=== PATIENT | male | born 1945 | race Caucasian/White ===

== ENCOUNTER 2016-06-27 23:45 | Emergency (ER) | payer OTHER ==
[~2016-06-27] VITALS: Ht 172.7 cm; Wt 61.2 kg
[2016-06-29] MEDS ORDERED: DUONEB 2.5-0.5 M3 ML (04:57)
[2016-06-29] MEDS ORDERED: LEXAPRO 10 MG T10 M1 (05:02)
[2016-06-29] MEDS ORDERED: MELATONIN3 MG PER TUBE (05:08)
[2016-06-29] MEDS ORDERED: SENOKOT-S1 TA1 (05:10)
[2016-06-29] MEDS ORDERED: VITAMINC500 (05:12)
== END 2016-06-28 01:38 ==
LOC: ER 23:45
DX: K94.20 Gastrostomy complication, unspecified (principal); K21.9 Gastro-esophageal reflux disease without esophagitis; J44.9 Chronic obstructive pulmonary disease, unspecified

== ENCOUNTER 2016-06-28 16:24 | Observation (INO) | payer OTHER ==
[~2016-06-28] VITALS: Ht 177.8 cm; Wt 59.6 kg
[2016-06-28 16:24] VITALS: BP 106/62
[2016-06-28 18:02] LABS: ABSOLUTE NEUTROPHILS 4.9 thou/uL (1.4-8.2); BASOPHILS 0.8 % (0.0-2.0); EOSINOPHILS 2.4 % (0.0-3.0); HEMATOCRIT 38.5 % (42.0-52.0); LYMPHOCYTES 25.8 % (24.0-44.0); MCH 30.1 pg (26.0-34.0); MCHC 33.7 % (28.0-37.0); MCV 89.2 fL (80.0-100.0); MONOCYTES 8.7 % (1.0-8.0); PLATELET COUNT 306 thou/uL (150-400); POLYS 62.3 % (36.0-66.0); RBC 4.32 mil/uL (4.50-6.00); RDW 13.6 % (10.5-14.5); WBC 7.9 thou/uL (4.0-11.0)
[2016-06-28 18:11] LABS: MANUAL DIFF NO
[2016-06-28 18:13] LABS: CALCIUM 9.4 mg/dL (8.5-10.1); CREATININE 0.8 mg/dL (0.6-1.3); POTASSIUM 4.4 mmol/L (3.5-5.1)
[2016-06-28 18:19] LABS: ALBUMIN 3.1 g/dL (3.4-5.0); TOTAL BILIRUBIN 0.6 mg/dL (<0.1-1.0); TOTAL PROTEIN 7.4 g/dL (6.4-8.2)
[2016-06-28 20:16] VITALS: BP 84/50
[2016-06-28 20:30] VITALS: BP 93/53
[2016-06-29 00:50] VITALS: BP 93/55
[2016-06-29 04:35] VITALS: BP 95/55
[2016-06-29] MEDS ORDERED: DUONEB 2.5-0.5 M3 ML (04:57)
[2016-06-29] MEDS ORDERED: LEXAPRO 10 MG T10 M1 (05:02)
[2016-06-29] MEDS ORDERED: MELATONIN3 MG PER TUBE (05:08)
[2016-06-29] MEDS ORDERED: SENOKOT-S1 TA1 (05:10)
[2016-06-29] MEDS ORDERED: VITAMINC500 (05:12)
[2016-06-29 08:23] VITALS: BP 88/50
[2016-06-29 13:01] LABS: HEMATOCRIT 35.8 % (42.0-52.0); MCH 29.8 pg (26.0-34.0); MCHC 33.4 % (28.0-37.0); MCV 89.4 fL (80.0-100.0); RBC 4.01 mil/uL (4.50-6.00); RDW 13.7 % (10.5-14.5); WBC 7.3 thou/uL (4.0-11.0)
[2016-06-29 13:14] LABS: CALCIUM 8.9 mg/dL (8.5-10.1); CREATININE 0.7 mg/dL (0.6-1.3); POTASSIUM 4.9 mmol/L (3.5-5.1)
[2016-06-29 13:20] LABS: INR 2.4; PROTIME 24.4 Seconds (9.3-11.4)
== END 2016-06-29 17:04 ==
LOC: ER 16:24 → 4N 19:40 → EROBS 19:40 → 4N 20:17
PROVIDERS: Emergency Medicine; Nurse Practitioner Adult Health
DX: K94.23 Gastrostomy malfunction (principal); K94.13 Enterostomy malfunction; F80.82 Social pragmatic communication disorder; R47.1 Dysarthria and anarthria; R13.10 Dysphagia, unspecified; K21.9 Gastro-esophageal reflux disease without esophagitis; J44.9 Chronic obstructive pulmonary disease, unspecified; D64.89 Other specified anemias; I82.409 Acute embolism and thrombosis of unspecified deep veins of unspecified lower extremity; E86.0 Dehydration; Z87.891 Personal history of nicotine dependence; Z79.899 Other long term (current) drug therapy; E16.2 Hypoglycemia, unspecified

== ENCOUNTER 2016-07-10 19:03 | Observation (INO) | payer OTHER ==
[~2016-07-10] VITALS: Ht 172.7 cm; Wt 61.2 kg
[~2016-07-10 19:03] MED LIST: DUONEB 2.5-0.5 M3 ML; LEXAPRO 10 MG T10 M1; MELATONIN3 MG PER TUBE; SENOKOT-S1 TA1; VITAMINC500
[2016-07-10 19:04] VITALS: BP 99/61
[2016-07-10 19:24] LABS: HEMATOCRIT 38.3 % (42.0-52.0); HEMOGLOBIN 12.6 gm/dL (14.0-18.0); MCH 29.4 pg (26.0-34.0); RBC 4.3 mil/uL (4.50-6.00); RDW 13.6 % (10.5-14.5); WBC 8.8 thou/uL (4.0-11.0)
[2016-07-10 19:30] LABS: CALCIUM 9.1 mg/dL (8.5-10.1); CREATININE 0.7 mg/dL (0.6-1.3); POTASSIUM 4.5 mmol/L (3.5-5.1)
[2016-07-10 19:37] LABS: ALBUMIN 3.1 g/dL (3.4-5.0); TOTAL BILIRUBIN 0.3 mg/dL (<0.1-1.0); TOTAL PROTEIN 7.5 g/dL (6.4-8.2)
[2016-07-10 19:41] LABS: APTT 34.1 Seconds (24.5-32.8); INR 2.5; PROTIME 26.3 Seconds (9.3-11.4)
[2016-07-10 20:25] VITALS: BP 97/60
[2016-07-11] VITALS (11 sets, daily range): BP systolic 85–130; BP diastolic 50–79
[2016-07-12 07:21] VITALS: BP 110/78
[2016-07-12 15:16] VITALS: BP 104/68
== END 2016-07-12 19:05 ==
LOC: ER 19:03 → 5S 20:02 → EROBS 20:02 → 5S 23:28
PROVIDERS: Emergency Medicine
DX: K94.10 Enterostomy complication, unspecified (principal); Z79.899 Other long term (current) drug therapy; K21.9 Gastro-esophageal reflux disease without esophagitis; J44.9 Chronic obstructive pulmonary disease, unspecified; R47.1 Dysarthria and anarthria; D64.9 Anemia, unspecified; Z87.891 Personal history of nicotine dependence; E46 Unspecified protein-calorie malnutrition

== ENCOUNTER 2016-07-18 10:10 | Emergency (ER) | payer OTHER ==
[~2016-07-18] VITALS: Ht 167.6 cm; Wt 56.7 kg
== END 2016-07-18 14:45 | disposition home or self-care (01) ==
LOC: ER 10:10
DX: K94.23 Gastrostomy malfunction (principal); K21.9 Gastro-esophageal reflux disease without esophagitis; Z86.718 Personal history of other venous thrombosis and embolism; J44.9 Chronic obstructive pulmonary disease, unspecified; Z86.2 Personal history of diseases of the blood and blood-forming organs and certain disorders involving the immune mechanism; I48.91 Unspecified atrial fibrillation; R47.1 Dysarthria and anarthria

== ENCOUNTER 2016-09-12 19:34 | Inpatient (IN) | payer OTHER ==
[~2016-09-12] VITALS: Ht 167.6 cm; Wt 56.0 kg
[2016-09-12 19:36] VITALS: BP 109/54
[2016-09-12 20:44] LABS: ABSOLUTE NEUTROPHILS 3.7 thou/uL (1.4-8.2); BASOPHILS 0.9 % (0.0-2.0); EOSINOPHILS 3.8 % (0.0-3.0); HEMATOCRIT 40.9 % (42.0-52.0); HEMOGLOBIN 13.7 gm/dL (14.0-18.0); LYMPHOCYTES 33.1 % (24.0-44.0); MCH 29.7 pg (26.0-34.0); MCHC 33.4 g/dL (28.0-37.0); MCV 88.8 fL (80.0-100.0); MONOCYTES 8.2 % (1.0-8.0); PLATELET COUNT 192 thou/uL (150-400); RDW 14.4 % (10.5-14.5); WBC 6.8 thou/uL (4.0-11.0)
[2016-09-12 20:46] LABS: MANUAL DIFF NO
[2016-09-12 20:52] LABS: CALCIUM 9.6 mg/dL (8.5-10.1); CREATININE 0.8 mg/dL (0.6-1.3)
[2016-09-12 20:56] LABS: ALBUMIN 3.6 g/dL (3.4-5.0); TOTAL BILIRUBIN 0.6 mg/dL (<0.1-1.0); TOTAL PROTEIN 7.3 g/dL (6.4-8.2)
[2016-09-12] MEDS ORDERED: COUMADIN 4 MG TA4 M1 PO (21:24)
[2016-09-12 21:27] VITALS: BP 98/55
[2016-09-13] VITALS (7 sets, daily range): BP systolic 86–96; BP diastolic 47–52
[2016-09-13 05:48] LABS: INR 1.8; PROTIME 18.7 Seconds (9.3-11.4)
[2016-09-13 06:10] LABS: ALBUMIN 3.4 g/dL (3.4-5.0); CALCIUM 9.2 mg/dL (8.5-10.1); CREATININE 0.8 mg/dL (0.6-1.3); MAGNESIUM 2.1 mg/dL (1.8-2.4); POTASSIUM 4.1 mmol/L (3.5-5.1); TOTAL BILIRUBIN 0.7 mg/dL (<0.1-1.0); TOTAL PROTEIN 6.9 g/dL (6.4-8.2)
[2016-09-14 00:43] VITALS: BP 107/60
[2016-09-14 04:51] VITALS: BP 104/57
[2016-09-14 07:05] LABS: INR 1.7
[2016-09-14 08:20] VITALS: BP 94/50
[2016-09-14 12:40] VITALS: BP 109/61
[2016-09-14 15:26] VITALS: BP 104/51
== END 2016-09-14 16:41 | DRG 394 ==
LOC: ER 19:34 → 4S 20:52 → EROBS 20:52 → 4S 21:29
PROVIDERS: Internal Medicine Endocrinology, Diabetes & Metabolism; Nurse Practitioner; Physician Assistant
PROC: 0D20XUZ Change Feeding Device in Upper Intestinal Tract, External Approach (ICD-10-PCS; principal; 2016-09-13)
DX: K94.23 Gastrostomy malfunction (principal); H44.003 Unspecified purulent endophthalmitis, bilateral; K21.9 Gastro-esophageal reflux disease without esophagitis; J44.9 Chronic obstructive pulmonary disease, unspecified; D63.8 Anemia in other chronic diseases classified elsewhere; I48.91 Unspecified atrial fibrillation; R47.1 Dysarthria and anarthria; R13.10 Dysphagia, unspecified; K94.13 Enterostomy malfunction; Z79.899 Other long term (current) drug therapy; Z86.718 Personal history of other venous thrombosis and embolism; Z79.01 Long term (current) use of anticoagulants
CPT/HCPCS: 10195

== ENCOUNTER 2016-12-15 06:41 | Emergency (ER) | payer OTHER ==
[~2016-12-15] VITALS: Ht 175.3 cm; Wt 54.4 kg
[~2016-12-15 06:41] MED LIST changes: +COUMADIN 4 MG TA4 M1 PO
[2016-12-15 11:43] VITALS: BP 99/74
== END 2016-12-15 12:45 | disposition home or self-care (01) ==
LOC: ER 06:41
DX: K94.13 Enterostomy malfunction (principal); K21.9 Gastro-esophageal reflux disease without esophagitis; J44.9 Chronic obstructive pulmonary disease, unspecified; I48.91 Unspecified atrial fibrillation; R47.1 Dysarthria and anarthria; Z86.2 Personal history of diseases of the blood and blood-forming organs and certain disorders involving the immune mechanism; Z86.718 Personal history of other venous thrombosis and embolism

== ENCOUNTER 2016-12-20 21:44 | Emergency (ER) | payer OTHER ==
[~2016-12-20] VITALS: Ht 175.3 cm; Wt 54.4 kg
== END 2016-12-20 23:34 | disposition home or self-care (01) ==
LOC: ER 21:44
DX: T85.848A Pain due to other internal prosthetic devices, implants and grafts, initial encounter (principal); K21.9 Gastro-esophageal reflux disease without esophagitis; J44.9 Chronic obstructive pulmonary disease, unspecified; I48.91 Unspecified atrial fibrillation; F10.99 Alcohol use, unspecified with unspecified alcohol-induced disorder; Z86.718 Personal history of other venous thrombosis and embolism; Y84.8 Other medical procedures as the cause of abnormal reaction of the patient, or of later complication, without mention of misadventure at the time of the procedure; Y92.89 Other specified places as the place of occurrence of the external cause

== ENCOUNTER 2017-01-05 20:51 | Emergency (ER) | payer OTHER ==
[~2017-01-05] VITALS: Ht 175.3 cm; Wt 59.0 kg
== END 2017-01-06 00:20 | disposition home or self-care (01) ==
LOC: ER 20:51
DX: K94.13 Enterostomy malfunction (principal); K21.9 Gastro-esophageal reflux disease without esophagitis; J44.9 Chronic obstructive pulmonary disease, unspecified; I48.91 Unspecified atrial fibrillation; Z98.890 Other specified postprocedural states; Z86.718 Personal history of other venous thrombosis and embolism; F10.99 Alcohol use, unspecified with unspecified alcohol-induced disorder

== ENCOUNTER 2017-02-21 02:28 | Emergency (ER) | payer OTHER ==
[~2017-02-21] VITALS: Ht 167.6 cm; Wt 70.3 kg
[2017-02-21 06:28] VITALS: BP 101/60
[2017-02-21 07:01] LABS: HEMATOCRIT 39.2 % (42.0-52.0); HEMOGLOBIN 13.4 gm/dL (14.0-18.0); MCH 30.3 pg (26.0-34.0); MCHC 34.1 g/dL (28.0-37.0); MCV 88.8 fL (80.0-100.0); RBC 4.41 mil/uL (4.50-6.00); RDW 12.8 % (10.5-14.5); WBC 7.1 thou/uL (4.0-11.0)
[2017-02-21 07:16] LABS: CALCIUM 9.5 mg/dL (8.5-10.1); CREATININE 0.8 mg/dL (0.7-1.3); POTASSIUM 4.3 mmol/L (3.5-5.1)
== END 2017-02-21 11:14 | disposition home or self-care (01) ==
LOC: ER 02:28
PROVIDERS: Emergency Medicine
DX: K94.23 Gastrostomy malfunction (principal); K21.9 Gastro-esophageal reflux disease without esophagitis; Z86.718 Personal history of other venous thrombosis and embolism; J44.9 Chronic obstructive pulmonary disease, unspecified; I48.91 Unspecified atrial fibrillation; F10.99 Alcohol use, unspecified with unspecified alcohol-induced disorder; Y84.8 Other medical procedures as the cause of abnormal reaction of the patient, or of later complication, without mention of misadventure at the time of the procedure

== ENCOUNTER 2017-02-22 06:01 | Observation (INO) | payer OTHER ==
[~2017-02-22] VITALS: Ht 167.6 cm; Wt 70.3 kg
[2017-02-22 06:02] VITALS: BP 95/54
[2017-02-22 07:18] VITALS: BP 95/54
[2017-02-22 08:25] VITALS: BP 98/51
[2017-02-22 08:34] LABS: ABSOLUTE NEUTROPHILS 4.9 thou/uL (1.4-8.2); BASOPHILS 0.9 % (0.0-2.0); EOSINOPHILS 3.9 % (0.0-3.0); HEMATOCRIT 39.7 % (42.0-52.0); HEMOGLOBIN 13.4 gm/dL (14.0-18.0); LYMPHOCYTES 21.5 % (24.0-44.0); MCH 30.1 pg (26.0-34.0); MCHC 33.8 g/dL (28.0-37.0); MCV 89.1 fL (80.0-100.0); MONOCYTES 7.5 % (1.0-8.0); PLATELET COUNT 321 thou/uL (150-400); POLYS 66.2 % (36.0-66.0); RBC 4.45 mil/uL (4.50-6.00); WBC 7.5 thou/uL (4.0-11.0)
[2017-02-22 08:36] LABS: MANUAL DIFF NO
[2017-02-22 08:44] LABS: INR 1.5; PROTIME 15.4 Seconds (9.3-11.4)
[2017-02-22 08:47] LABS: ALBUMIN 3.2 g/dL (3.4-5.0); CALCIUM 9.4 mg/dL (8.5-10.1); CREATININE 0.6 mg/dL (0.7-1.3); MAGNESIUM 2.1 mg/dL (1.8-2.4); POTASSIUM 4.7 mmol/L (3.5-5.1); TOTAL BILIRUBIN 0.3 mg/dL (<0.1-1.0); TOTAL PROTEIN 7.4 g/dL (6.4-8.2)
[2017-02-22 09:01] VITALS: BP 100/63
[2017-02-22 16:02] VITALS: BP 105/63
[2017-02-22 21:04] VITALS: BP 102/56
[2017-02-23] VITALS (8 sets, daily range): BP systolic 98–111; BP diastolic 52–68
[2017-02-23 05:14] LABS: ABSOLUTE NEUTROPHILS 4.3 thou/uL (1.4-8.2); BASOPHILS 0.9 % (0.0-2.0); EOSINOPHILS 1.9 % (0.0-3.0); HEMATOCRIT 37.1 % (42.0-52.0); LYMPHOCYTES 24.1 % (24.0-44.0); MCH 31.2 pg (26.0-34.0); MCHC 34.9 g/dL (28.0-37.0); MCV 89.5 fL (80.0-100.0); PLATELET COUNT 323 thou/uL (150-400); POLYS 65.1 % (36.0-66.0); RBC 4.15 mil/uL (4.50-6.00); RDW 13.1 % (10.5-14.5); WBC 6.6 thou/uL (4.0-11.0)
[2017-02-23 05:22] LABS: MANUAL DIFF NO
[2017-02-23 05:27] LABS: CREATININE 0.7 mg/dL (0.7-1.3); MAGNESIUM 1.9 mg/dL (1.8-2.4)
[2017-02-23 05:36] LABS: POTASSIUM 3.4 mmol/L (3.5-5.1)
[2017-02-24 04:38] VITALS: BP 103/61
[2017-02-24 06:24] LABS: CALCIUM 8.9 mg/dL (8.5-10.1); CREATININE 0.7 mg/dL (0.7-1.3); INR 1.3; POTASSIUM 3.2 mmol/L (3.5-5.1); PROTIME 13.4 Seconds (9.3-11.4)
[2017-02-24 07:47] VITALS: BP 99/51
[2017-02-24] MEDS ORDERED: MIRALAX17 GM PER TUBE (09:31)
== END 2017-02-24 13:50 ==
LOC: ER 06:01 → EROBS 07:01 → 4E 07:01
PROVIDERS: Internal Medicine; Nurse Practitioner
DX: T85.528A Displacement of other gastrointestinal prosthetic devices, implants and grafts, initial encounter (principal); Z98.890 Other specified postprocedural states; K21.9 Gastro-esophageal reflux disease without esophagitis; Z86.718 Personal history of other venous thrombosis and embolism; J44.9 Chronic obstructive pulmonary disease, unspecified; Z87.891 Personal history of nicotine dependence; R13.10 Dysphagia, unspecified; I48.91 Unspecified atrial fibrillation; D64.9 Anemia, unspecified; R53.81 Other malaise

== ENCOUNTER 2017-02-28 06:33 | Emergency (ER) | payer OTHER ==
[~2017-02-28] VITALS: Ht 167.6 cm; Wt 56.7 kg
[~2017-02-28 06:33] MED LIST changes: +MIRALAX17 GM PER TUBE
[2017-02-28 07:40] VITALS: BP 111/39
== END 2017-02-28 15:17 ==
LOC: ER 06:33
DX: Z43.1 Encounter for attention to gastrostomy (principal); K21.9 Gastro-esophageal reflux disease without esophagitis; J44.9 Chronic obstructive pulmonary disease, unspecified; I48.91 Unspecified atrial fibrillation; Z86.718 Personal history of other venous thrombosis and embolism; F10.99 Alcohol use, unspecified with unspecified alcohol-induced disorder

== ENCOUNTER 2017-08-25 16:44 | Emergency (ER) | payer OTHER ==
[~2017-08-25] VITALS: Ht 170.2 cm; Wt 65.8 kg
[~2017-08-25 16:44] MED LIST changes: -VITAMINC500; +VITAMINC500 PER TUBE
[2017-08-25 16:45] VITALS: BP 105/59
== END 2017-08-25 19:49 ==
LOC: ER 16:44
DX: K94.13 Enterostomy malfunction (principal); K21.9 Gastro-esophageal reflux disease without esophagitis; I48.91 Unspecified atrial fibrillation

== ENCOUNTER 2017-09-05 21:26 | Emergency (ER) | payer OTHER ==
[~2017-09-05] VITALS: Ht 172.7 cm; Wt 60.3 kg
[2017-09-05] MEDS ORDERED: COUMADIN 1MG TAB1 M1 PER TUBE (21:38)
[2017-09-05] MEDS ORDERED: COUMADIN 5 MG TA5 M1 PER TUBE (21:38)
[2017-09-05] MEDS ORDERED: PEPCID20 MG PER TUBE (21:39)
[2017-09-05] MEDS ORDERED: ONDANSETRON HCL4 M2 PER TUBE (21:40)
[2017-09-05 23:07] VITALS: BP 103/54
== END 2017-09-05 23:41 | disposition home or self-care (01) ==
LOC: ER 21:26
DX: K94.23 Gastrostomy malfunction (principal); K21.9 Gastro-esophageal reflux disease without esophagitis; J44.9 Chronic obstructive pulmonary disease, unspecified; I48.91 Unspecified atrial fibrillation